=== PATIENT | male | born 1990 | race Caucasian/White ===

== ENCOUNTER 2018-12-08 15:10 | Emergency (ER) | payer OTHER ==
[~2018-12-08] VITALS: Ht 182.9 cm; Wt 93.0 kg
[2018-12-08] MEDS ORDERED: NOHOMEMEDICATIONS (15:25)
[2018-12-08] MEDS ORDERED: KEFLEX500 M1 PO (15:51)
[2018-12-08 16:00] VITALS: BP 132/76
== END 2018-12-08 16:00 | disposition home or self-care (01) ==
LOC: M.ERS 15:10
DX: S91.312A Laceration without foreign body, left foot, initial encounter (principal); L03.116 Cellulitis of left lower limb; Z90.49 Acquired absence of other specified parts of digestive tract; W26.8XXA Contact with other sharp object(s), not elsewhere classified, initial encounter; Y93.89 Activity, other specified; Y92.89 Other specified places as the place of occurrence of the external cause; Y99.8 Other external cause status